=== PATIENT | female | born 1960 | race Caucasian/White ===

== ENCOUNTER 2018-03-13 08:48 | Outpatient (CLI) | payer OTHER ==
--- NOTE | 2018-03-13 14:56 | Ultrasound Report ---
Procedure Date: 03/13/2018 Accession Number: [id number] / [id number] Procedure: US - Carotid Doppler Complete CPT Code: FULL RESULT: EXAM: BILATERAL CAROTID AND VERTEBRAL ARTERY DUPLEX DOPPLER ULTRASOUND: EXAM DATE: 03/13/2018 09:43 AM CLINICAL HISTORY: Pure hypercholesterolia, screen for cardiovascular disease. COMPARISON: None. TECHNIQUE: Grayscale imaging, color Doppler, and duplex spectral Doppler were used to evaluate the carotid and vertebral arteries bilaterally. Static images were obtained. FINDINGS: Mild noncalcified plaque within left carotid bulb. Normal antegrade flow is present in bilateral vertebral arteries. VELOCITIES (cm/sec): RIGHT: RCCA Prox: PSV 91 cm/sec. RCCA Dist: PSV 82 cm/sec, EDV 23 cm/sec. RECA: PSV 75 cm/sec. R Bulb: PSV 33 cm/sec, EDV 13 cm/sec, ICA/CCA ratio 0.40. AMOS Prox: PSV 71 cm/sec, EDV 31 cm/sec, ICA/CCA ratio 0.86. AMOS Mid: PSV 73 cm/sec, EDV 35 cm/sec, ICA/CCA ratio 0.89. AMOS Dist: PSV 76 cm/sec, EDV 30 cm/sec, ICA/CCA ratio 0.92. RVA: PSV 44 cm/sec. RVA flow direction: Antegrade. LEFT: LCCA Prox: PSV 91 cm/sec. LCCA Dist: PSV 101 cm/sec, EDV 37 cm/sec. LECA: PSV 114 cm/sec. L Bulb: PSV 32 cm/sec, EDV 11 cm/sec, ICA/CCA ratio 0.31. LICA Prox: PSV 92 cm/sec, EDV 40 cm/sec, ICA/CCA ratio 0.91. LICA Mid: PSV 123 cm/sec, EDV 54 cm/sec, ICA/CCA ratio 1.21. LICA Dist: PSV 108 cm/sec, EDV 41 cm/sec, ICA/CCA ratio 1.06. LVA: PSV 48 cm/sec. LVA flow direction: Antegrade. ICA diameter stenosis: Right: <50% by velocity and <70% by NASCET criteria. Left: <50% by velocity and <70% by NASCET criteria. IMPRESSION: 1. No significant bilateral carotid artery plaquing. 2. In the right carotid artery there are no elevated carotid artery velocities to suggest hemodynamically significant stenosis. 3. In the left carotid artery there are no elevated carotid artery velocities to suggest hemodynamically significant stenosis. 4. Normal antegrade flow is present in bilateral vertebral arteries. General Recommendations: Stenosis =50% ICA - Follow-up ultrasound 6-12 months Stenosis <50% ICA - High Risk Patient with plaque - Follow-up ultrasound 1-2 years Normal Study but High Risk Patient - Follow-up ultrasound 3-5 years Management recommendations and diagnostic criteria are based on current IAC endorsed standards in Carotid Artery Stenosis: Grayscale and Doppler Ultrasound Diagnosis. Validated velocity measurements with angiographic measurements and velocity criteria are extrapolated from diameter data as defined by the Society of Radiologists in Ultrasound Consensus Conference Radiology 2003; 229;340-346. RADIA
== END 2018-03-13 08:49 | disposition home or self-care (01) ==
LOC: DI 08:48
PROVIDERS: ATTEND Naturopath
DX: E78.00 Pure hypercholesterolemia, unspecified (principal); Z13.6 Encounter for screening for cardiovascular disorders
CPT/HCPCS: 93880

== ENCOUNTER 2018-10-23 10:54 | Outpatient (CLI) | payer OTHER ==
--- NOTE | 2018-10-23 13:28 | Mammography Report ---
Reason: SCREENING MAMMOGRAM Procedure Date: 10/23/2018 Accession Number: [id number] / [id number] Procedure: LARRY - Screening Mammo w/Reilly CPT Code: FULL RESULT: EXAM: Screening Mammo w/Reilly DATE: 10/23/2018 11:31 AM CLINICAL HISTORY: Routine screening. No reported personal or family history of breast cancer. TECHNIQUE: Bilateral CC and MLO views were obtained. COMPARISON: Baseline exam FINDINGS: The breasts demonstrate heterogeneously dense fibroglandular parenchyma bilaterally. Left breast: There is an irregular high density mass with partially spiculated margins and associated pleomorphic calcifications in the 2:00 left breast, 2.7 cm from the nipple. By mammography, extent of mass and calcifications measure 51 x 29 x 35 mm (AP x SI x ML). Right breast: There are no suspicious masses, calcifications or areas of distortion. IMPRESSION: Incomplete examination RECOMMENDATION: Left breast: 5.1 cm irregular mass with associated pleomorphic calcifications upper outer breast. Incomplete. BI-RADS Category 0. Diagnostic imaging performed same day; please see separate report. Right breast: Negative. BI-RADS Category 1. Recommend annual screening mammography. BI-RADS CATEGORY 0: Incomplete examination STANDARD QUALIFYING STATEMENTS: 1. This examination was not reviewed with the aid of Computer-Aided Detection (CAD). 2. A negative or benign imaging report should not preclude biopsy if clinically suspicious findings are present. 3. Dense breasts may obscure an underlying neoplasm. 4. This examination was reviewed with the aid of 3D breast imaging (tomosynthesis).
[2018-10-23] MEDS ORDERED: BUFFERED LIDOCAINE 10 ML SYRINGE IU ONE (16:54)
--- NOTE | 2018-10-23 16:57 | Ultrasound Report ---
Reason: LEFT BREAST CORE BIOPSY Procedure Date: 10/23/2018 Accession Number: [id number] / [id number] Procedure: US - Biopsy Breast Core CPT Code: FULL RESULT: EXAM: Biopsy Breast Core, Breast Unilateral Limited DATE: 10/23/2018 4:30 PM CLINICAL HISTORY: Left breast mass and suspicious axillary lymph node for biopsy. TECHNIQUE: 2 site biopsy was performed: Site 1 = 2:00 breast; site 2 = axillary lymph node. Same technique was used at both sites: Informed consent was obtained. Entry sites were prepped and draped in the usual sterile fashion. Each skin site and deeper tissues were anesthetized with 10 cc of 1% lidocaine. A small dermatotomy was made in the skin at each site. 13-gauge coaxial needle guide was advanced into position at each site. 14-gauge achieve needle biopsy system was then used to obtain 3 core samples at each site. Samples were sent in formalin for histologic analysis. Marker placement was then performed under sonographic guidance at each site and position was confirmed with sonography. [place] were then removed and hemostasis achieved. Each site was sterilely dressed and bandaged. Patient was discharged in good condition COMPARISON: Screening and diagnostic exam from earlier in the day. IMPRESSION: Left breast: Successful 2 site ultrasound-guided core biopsy and marker placement as described. Site 1 = 2:00 breast. Site 2 = axillary lymph node. Final recommendations are pending histologic results. Addendum to this report will be issued when histologic results available.
== END 2018-10-23 10:55 | disposition home or self-care (01) ==
LOC: DI 10:54
PROVIDERS: ATTEND Naturopath
DX: Z12.31 Encounter for screening mammogram for malignant neoplasm of breast (principal); C50.912 Malignant neoplasm of unspecified site of left female breast; C77.3 Secondary and unspecified malignant neoplasm of axilla and upper limb lymph nodes; Z17.1 Estrogen receptor negative status [ER-]
CPT/HCPCS: 19083; 76642; 77063; 77067

== ENCOUNTER 2018-10-23 10:56 | Outpatient (CLI) | payer OTHER ==
--- NOTE | 2018-10-23 13:31 | DEXA Report ---
Reason: SCREENING FOR OSTEOPOROSIS Procedure Date: 10/23/2018 Accession Number: [id number] / [id number] Procedure: DEX - Dexa Spine and/or Hip CPT Code: FULL RESULT: EXAM: Dexa Spine and/or Hip DATE: 10/23/2018 12:15 PM CLINICAL HISTORY: SCREENING FOR OSTEOPOROSIS TECHNIQUE: Dual energy x-ray absorptiometry (DXA) was performed on a [employer] System. Regions measured are the AP Spine, femoral neck, and if needed forearm. COMPARISON: None. In accordance with the International Society for Clinical Densitometry (ISCD) guidelines, data from previous exams may be reanalyzed using current recommendations and techniques. This is done to allow a more accurate basis for comparison with the current study. FINDINGS: The data for the lumbar spine is as follows: BMD (g/cm/cm) T-SCORE Z-SCORE REGION L1 0.933 -1.6 -0.9 L2 1.059 -1.2 -0.4 L3 1.094 -0.9 -0.1 L4 1.012 -1.6 -0.8 TOTAL 1.027 -1.3 -0.5 NOTE: All evaluable vertebrae are used for classification The data for the hip is as follows: BMD (g/cm/cm) T-SCORE Z-SCORE REGION Neck 0.845 -1.4 -0.4 TOTAL 0.879 -1.0 -0.4 NOTE: The femoral neck or total proximal femur, whichever is lowest, is used for classification. IMPRESSION: THE WHO CLASSIFICATION BASED ON THE INTERNATIONAL REFERENCE STANDARD IS OSTEOPENIA. THE FRACTURE RISK IS INCREASED. RECOMMENDATION: Patients with diagnosis of osteoporosis or osteopenia should have regular bone mineral density assessment. For those eligible for Medicare, routine testing is allowed once every 2 years. Testing frequency can be increased for patients who have rapidly progressing disease or for those who are receiving medical therapy to restore bone mass. COMMENT: World Health Organization (WHO) definitions for osteoporosis and osteopenia: NORMAL BMD: T-score at -1.0 or higher, fracture risk is low OSTEOPENIA BMD: T-score between -1.0 and -2.5, fracture risk is increased. OSTEOPOROSIS BMD: T-score at -2.5 or lower, fracture risk is high. National Osteoporosis Foundation recommends: 1. Obtain adequate dietary calcium (at least 1200 mg per day) and vitamin D (400-800 international units per day). 2. Participate, as appropriate, in regular weightbearing and muscle-strengthening exercise. 3. Avoid tobacco use and reduce alcohol and caffeine intake. 4. For more detailed information see the website at www.NOF.org.
[2018-10-23] MEDS ORDERED: BUFFERED LIDOCAINE 10 ML SYRINGE ONE ×2 (13:52→13:57)
[2018-10-23] MEDS ORDERED: BUPIVACAINE 0.5%-EPI 1:200000 PF 10 ML VIAL ONE (13:53)
--- NOTE | 2018-10-23 16:50 | Mammography Report ---
Reason: LEFT BREAST MASS Procedure Date: 10/23/2018 Accession Number: [id number] / [id number] Procedure: LARRY - Diagnostic Dig LT CPT Code: FULL RESULT: EXAM: Diagnostic Dig LT DATE: 10/23/2018 12:39 PM CLINICAL HISTORY: Finding recalled from screening exam. TECHNIQUE: Left CC and MLO spot compression. 90 degree 2-D/3-D mammography. Real-time ultrasound. COMPARISON: Baseline exam of earlier today FINDINGS: The breast demonstrates heterogeneously dense fibroglandular parenchyma. Left breast: Additional images reconfirm an ill-defined high density mass in the 2:00 breast measuring 51 x 29 x 35 mm mammographically. There are pleomorphic calcifications spanning 35 mm which are included within the mass extent. No additional suspicious masses or calcifications noted within the remaining breast. Targeted ultrasound was performed by both the technologist and the radiologist. In the mid 2:00 breast, there is an irregular, angular margin, hypoechoic, mildly vascular mass corresponding to the mammographic mass. Measured sonographic extent is less than that of the mammography at 42 x 35 x 31 mm. Survey of the axilla demonstrates a single lymph node with eccentric, borderline cortical thickening of 3 mm. IMPRESSION: Left breast: 1. 5 cm irregular mass with associated pleomorphic calcifications in the 2:00 breast as described. Highly suggestive of malignancy. BI-RADS Category 5. Ultrasound guided core biopsy was performed same day; please see separate report. 2. Single axillary lymph node with borderline abnormal morphology; suspicion is heightened given size of the breast mass. Suspicious. BI-RADS Category 4. Ultrasound-guided core biopsy was performed same day; please see separate report. BI-RADS CATEGORY 5: Highly suggestive of malignancy. ).
== END 2018-10-23 10:57 | disposition home or self-care (01) ==
LOC: DI 10:56
PROVIDERS: ATTEND Naturopath
DX: Z13.820 Encounter for screening for osteoporosis (principal); M85.89 Other specified disorders of bone density and structure, multiple sites; N63.20 Unspecified lump in the left breast, unspecified quadrant
CPT/HCPCS: 77080

== ENCOUNTER 2019-02-17 14:14 | Outpatient (CLI) | payer OTHER ==
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
== END 2019-02-17 14:15 | disposition home or self-care (01) ==
LOC: DI.S 14:14
PROVIDERS: ATTEND Chiropractor
DX: S13.8XXA Sprain of joints and ligaments of other parts of neck, initial encounter (principal); M99.11 Subluxation complex (vertebral) of cervical region; M99.00 Segmental and somatic dysfunction of head region; R51 Headache
CPT/HCPCS: 72052

== ENCOUNTER 2019-02-17 18:15 | Emergency (ER) | payer OTHER ==
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
[2019-02-17 20:40] VITALS: BP 131/82
== END 2019-02-17 20:41 | disposition home or self-care (01) ==
LOC: ED 18:15
DX: S13.9XXA Sprain of joints and ligaments of unspecified parts of neck, initial encounter (principal); V43.92XA Unspecified car occupant injured in collision with other type car in traffic accident, initial encounter
CPT/HCPCS: 99283

== ENCOUNTER 2019-02-18 07:36 | Emergency (ER) | payer OTHER ==
[2019-02-18 07:46] VITALS: BP 135/81
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
== END 2019-02-18 11:38 | disposition home or self-care (01) ==
LOC: ED 07:36
DX: S13.9XXA Sprain of joints and ligaments of unspecified parts of neck, initial encounter (principal); V89.2XXA Person injured in unspecified motor-vehicle accident, traffic, initial encounter
CPT/HCPCS: 72141; 99282; 99283

== ENCOUNTER 2020-05-26 12:43 | Outpatient (CLI) | payer OTHER ==
--- NOTE | 2020-05-26 14:26 | DEXA Report ---
PROCEDURE: Dexa Spine and/or Hip INDICATIONS: OSTEOPENIA, LT BREAST CA TECHNIQUE: Dual energy x-ray absorptiometry (DXA) was performed on a [employer] System. Regions measur ed are the AP Spine, femoral neck, and if needed forearm. COMPARISON: None. FINDINGS: Lumbar Spine: Bone Mineral Density 1.028 g/cm/cm,T score -1.3 Left Femoral Neck: Bone Mineral Density 0.897 g/cm/cm, T score -0.9 (T score greater or equal to -1.0: NORMAL) (T score from -1.1 to -2.4: OSTEOPENIA) (T score less than or equal to -2.5 to: OSTEOPOROSIS) Impression: Osteopenia. Patients with diagnosis of osteoporosis or osteopenia should have regular bone mineral density assess ment. For those eligible for Medicare, routine testing is allowed once every 2 years. Testing frequ ency can be increased for patients who have rapidly progressing disease or for those who are receivin g medical therapy to restore bone mass. Reviewed by: Graeme Barajas MD on 05/26/2020 2:24 PM PDT Approved by: Graeme Barajas MD on 05/26/2020 2:24 PM PDT Station ID: [id number]
== END 2020-05-26 12:44 | disposition home or self-care (01) ==
LOC: DI 12:43
PROVIDERS: ATTEND Acupuncturist
DX: M85.89 Other specified disorders of bone density and structure, multiple sites (principal); C50.912 Malignant neoplasm of unspecified site of left female breast
CPT/HCPCS: 77080

== ENCOUNTER 2021-12-11 14:20 | Outpatient (CLI) | payer OTHER ==
--- NOTE | 2021-12-11 16:57 | DEXA Report ---
PROCEDURE: Dexa Spine and/or Hip INDICATIONS: SCREENING FOR OSTEOPOROSIS TECHNIQUE: Dual energy x-ray absorptiometry (DXA) was performed on a ENDOGENX System. Regions measur ed are the AP Spine, femoral neck, and if needed forearm. COMPARISON: DEXA, 05/26/2020. FINDINGS: Lumbar Spine: Bone Mineral Density 1.021 g/cm/cm,T score -1.3, osteopenia. Left Hip: Bone Mineral Density 0.927 g/cm/cm,T score -0.6, normal. Left Femoral Neck: Bone Mineral Density 0.823 g/cm/cm, T score -1.5, osteopenia. (T score greater or equal to -1.0: NORMAL) (T score from -1.1 to -2.4: OSTEOPENIA) (T score less than or equal to -2.5 to: OSTEOPOROSIS) Impression: Based on WHO criteria, the patient is osteopenic. Compared to last exam on 05/26/2020, there is no st atistically significant change. Patients with diagnosis of osteoporosis or osteopenia should have regular bone mineral density assess ment. For those eligible for Medicare, routine testing is allowed once every 2 years. Testing frequ ency can be increased for patients who have rapidly progressing disease or for those who are receivin g medical therapy to restore bone mass. Reviewed by: Camilo Velazco MD on 12/11/2021 4:55 PM PDT Approved by: Camilo Velazco MD on 12/11/2021 4:55 PM PDT Station ID: [id number]
== END 2021-12-11 14:21 | disposition home or self-care (01) ==
LOC: DI 14:20
PROVIDERS: ATTEND Naturopath
DX: Z13.820 Encounter for screening for osteoporosis (principal); M85.89 Other specified disorders of bone density and structure, multiple sites